=== PATIENT | male | born 1950 | race Caucasian/White ===

== ENCOUNTER → 2021-03-05 | Outpatient (CLI) | payer MEDICARE | LOC: SJCVC 13:41 | PROVIDERS: ATTEND Internal Medicine Cardiovascular Disease | DX: R94.31 Abnormal electrocardiogram [ECG] [EKG] (principal); I48.19 Other persistent atrial fibrillation; I42.0 Dilated cardiomyopathy; I10 Essential (primary) hypertension; E66.9 Obesity, unspecified; E78.5 Hyperlipidemia, unspecified; Z90.49 Acquired absence of other specified parts of digestive tract; Z79.899 Other long term (current) drug therapy; Z87.891 Personal history of nicotine dependence; Z82.49 Family history of ischemic heart disease and other diseases of the circulatory system ==

== ENCOUNTER 2021-05-08 08:29 | Observation (INO) | payer OTHER ==
[~2021-05-08] VITALS: Ht 193 cm; Wt 163.7 kg
[2021-05-08 07:45] VITALS: BP 132/79
[~2021-05-08 08:29] MED LIST: ALLOPURINOL 10100 M3 PO; ENTRESTO 49 MG1 EACH PO; KLOR-CON M2020 MEQ PO; LIPITOR40 MG PO; NORVASC10 MG PO; SERTRALINE HCL100 MG PO; SUPER THERAVIT1 EACH PO; TOPROL XL50 MG PO; XARELTO20 MG PO
[2021-05-08 09:17] LABS: ABSOLUTE NEUTROPHILS 5.4 thou/uL (1.4-8.2); BASOPHILS 0.8 % (0.0-2.0); EOSINOPHILS 1.4 % (0.0-3.0); HEMATOCRIT 43.6 % (42.0-52.0); HEMOGLOBIN 14.6 gm/dL (14.0-18.0); LYMPHOCYTES 17.8 % (24.0-44.0); MCH 32.3 pg (26.0-34.0); MCHC 33.6 g/dL (28.0-37.0); MCV 96.3 fL (80.0-100.0); MONOCYTES 7.1 % (1.0-8.0); PLATELET COUNT 305 thou/uL (150-400); POLYS 72.9 % (36.0-66.0); RBC 4.52 mil/uL (4.50-6.00); RDW 15.1 % (10.5-14.5); WBC 7.5 thou/uL (4.0-11.0)
[2021-05-08 09:32] LABS: APTT 26.3 Seconds (24.5-32.8); CREATININE 1.2 mg/dL (0.7-1.3); POTASSIUM 4.1 mmol/L (3.5-5.1); PROTIME 10.9 Seconds (10.5-12.1)
[2021-05-08 09:38] LABS: ALBUMIN 3.4 g/dL (3.4-5.0); TOTAL BILIRUBIN 0.6 mg/dL (0.2-1.0); TOTAL PROTEIN 7.1 g/dL (6.4-8.2)
--- NOTE | 2021-05-08 09:47 | TEE ---
[address] [address] TRANSESOPHAGEAL ECHOCARDIOGRAM Name: MADALYN GOODEN Room #: REG [facility] Delmi.#: [id number] Admission: 05/08/21 Attend Phys: Constantino White MD, Discharge: Date of : 50 Report #: [id number] THIS REPORT FOR: cc: FAM - Family physician unknown FAM - Family physician unknown Constantino White MD [facility] ~ APPROVED REPORT Study performed: 05/08/2021 07:57:05 EXAM: Comprehensive 2D, Doppler, and color-flow Echocardiogram Patient Location: CVL Status: routine HR: 86 bpm Rhythm: Atrial Fibrillation Indications Atrial Fibrillation Procedure After obtaining informed consent, patient underwent transesophageal echo in the IR. Type of Sedation : General Anesthesia Sedation start time: 09 Case end Time: 913 Transesophageal probe was inserted and advanced into esophagus without difficulty by Constantino White MD. The DM was performed without complications. Throughout the procedure, the blood pressure, pulse oximetry, cardiac rhythm, and rate were monitored. The patient tolerated the procedure without adverse effects. Recovery from conscious sedation was uneventful and vital signs were stable. Left Ventricle The left ventricle is normal size. Mild concentric left ventricular hypertrophy. Left ventricular systolic function is severely decreased. LVEF is 25-30%. Right Ventricle The right ventricle is normal size. [address] [address] TRANSESOPHAGEAL ECHOCARDIOGRAM Name: MADALYN GOODEN Room #: REG [facility]..#: [id number] Admission: 05/08/21 Attend Phys: Constantino White, Discharge: Date of : 50 Report #: [id number] Atria Left atrium is moderately dilated. Right atrium is moderately dilated. Aortic Valve Trace aortic regurgitation. Tricuspid Valve Trace tricuspid regurgitation. <Conclusion> Consent previously obtained Anesthesia performed by the anesthesiologist Esophageal probe was advanced without difficulty Left atrial appendage, moderate size, no obvious mass or clot detected. Left ventricle size in the upper limits of normal with normal wall thickness Global hypokinesis ejection fraction 25-30% Moderate biatrial enlargement Trileaflet aortic valve, minimal calcification, no stenosis Normal mitral valve structure and function, trace mitral valve insufficiency Trace tricuspid valve insufficiency No evidence of ASD/VSD by color study Patient had a previous DM therefore no study performed. No pericardial effusion <ELECTRONICALLY SIGNED> By: Constantino White MD, FACC 05/08/21945 5 5 Constantino White MD, FACC /INF
[2021-05-08 14:45] VITALS: BP 130/84
--- NOTE | 2021-05-08 18:17 | NUR ---
PT ARRIVED APPROX [address] [employer]. R GROIN DRESSING WITH DRAINAGE. NO HEMATOMA. DAUGHTER AT BEDSIDE. POST CATH BEDREST. PT COMPLIANT. VSS C/O BACK PAIN MANAGED WITH PO PAIN MEDS. O2 SATS WNL RA. PLAN FOR POSSIBLE DC HOME IN AM. AMIO GTT CONTINUES PER ORDERS. DENIES FURTHER NEEDS. CONTINUING POC. WILL PASS REPORT TO MANA LOVETT.
[2021-05-08 20:17] VITALS: BP 128/75
[2021-05-08 23:45] VITALS: BP 126/69
[2021-05-09 05:06] VITALS: BP 125/67
[2021-05-09] MEDS ORDERED: PACERONE200 MG PO (07:38)
[2021-05-09 09:18] VITALS: BP 132/77
[2021-05-09 09:40] VITALS: BP 132/77
--- NOTE | 2021-05-09 10:55 | NUR ---
ASSUMED PATIENT CARE AT 0700. A/O X4. ON AMIO GTT. NSR ON MONITOR. DENIES CHEST PAIN. NO SOB. RIGHT GRONE NO MORE BLEEDING NOTED. DC TO HOME NOW.
--- NOTE | 2021-05-21 08:44 | P ---
[facility] [place] [address] PROCEDURE REPORT Name: MADALYN GOODEN Room #: 218-P [facility] M.R.#: [id number] Admission: 05/08/21 Attend Phys: Constantino White MD, Discharge: 05/09/21 Date of : 50 Report #: [id number] THIS REPORT FOR: cc: FAM - Family physician unknown FAM - Family physician unknown Stuart Connors MD ~ PREOPERATIVE DIAGNOSIS: Atrial fibrillation. POSTOPERATIVE DIAGNOSIS: Atrial fibrillation. PROCEDURE PERFORMED: 1. Atrial fibrillation ablation -- CPT code 51766. 2. 3D mapping, CPT code 05331. 3. Intracardiac echo, CPT code 48150. 4. Focal ablation -- CPT code 38549. HISTORY: The patient is a 71-year-old with recurrent AFib, here for ablation. ANESTHESIA: The patient underwent general anesthesia with no anesthesia related complications. DESCRIPTION OF PROCEDURE: The patient underwent informed consent. He was brought to the EP laboratory in a fasting and sedated state. He was prepped and draped in standard fashion, obtained access to the right femoral vein x 3, placing an 8, 9 and 7-Kiswahili short sheath. Next, I placed a decapolar catheter into the coronary sinus and ICE catheter into the right atrium. Intracardiac ultrasound images were taken. The patient had two left and two right pulmonary veins. This was merged with the CT scan. The patient was then systemically heparinized and a transseptal was attempted using an SL1 sheath and a Steward needle. I was able to cross the wire into the left atrium, but could not advance the SL1 sheath. Therefore, I tried to dilate up with the cryosheath which would not cross. I then went back up with the SL1 sheath and this now could enter the left atrium and therefore, I used a PowerFlex Pro 6 mm x 4 cm balloon to dilate the interatrial septum. I performed 3 dilatations each at 10 atmospheres and each of 10 seconds duration. Then I was able to remove the SL1 sheath and advanced the cryosheath into the left atrium. Next, I started by attempting to isolate the left superior pulmonary vein, which was unsuccessful. I performed a total of four freezes of 4 minutes duration, which did not result in isolation. Therefore, at the end of the case, I went up with the SmartTouch ThermoCool and isolated this using radiofrequency ablation. I then turned my attention to the left inferior pulmonary vein. This vein underwent three freezes each of 3 minutes duration and then was isolated. The right superior pulmonary vein underwent a 3-minute freeze followed by two 4-minute freezes and it was unclear if this was isolated. I then turned my attention in the right inferior pulmonary vein. This underwent three 4-minute freezes and on a final [facility] [address] [place] [address] PROCEDURE REPORT Name: MADALYN GOODEN Room #: 218-P [facility] Cammie Guzman#: [id number] Admission: 05/08/21 Attend Phys: Constantino White MD, Discharge: 05/09/21 Date of : 50 Report #: [id number] freeze it isolated at 28 seconds. The patient was eventually cardioverted and it showed that all veins were isolated except for the left superior pulmonary vein, which required radiofrequency ablation. A posterior wall isolation. Next, using the cryoablation balloon, I performed 5 freezes along the posterior wall, which resulted in posterior wall isolation. Post-ablation, the patient was back in sinus rhythm after cardioversion. There were no other arrhythmias noted. The patient then received systemic protamine and once ACT was within acceptable range, catheters and sheaths were pulled and hemostasis obtained. Intracardiac ultrasound showed no evidence of pericardial effusion. The patient awoke neurologically and hemodynamically intact. No complications. No significant bleeding. CONCLUSION: 1. Successful AFib ablation with isolation of the pulmonary veins. 2. Successful posterior wall isolation using cryoablation balloon. <ELECTRONICALLY SIGNED> By: tSuart Connors MD 05/21/21 0844 [id number] Stuart Cononrs MD /nt
== END 2021-05-09 11:38 | disposition home or self-care (01) ==
LOC: CATH 08:29 → 2N 14:42
PROVIDERS: ADMIT Internal Medicine Cardiovascular Disease; ATTEND Internal Medicine
DX: I48.91 Unspecified atrial fibrillation (principal); I10 Essential (primary) hypertension; Z20.822 Contact with and (suspected) exposure to COVID-19; E66.9 Obesity, unspecified; Z68.41 Body mass index [BMI] 40.0-44.9, adult; Z79.899 Other long term (current) drug therapy; Z88.8 Allergy status to other drugs, medicaments and biological substances
CPT/HCPCS: 62110; 62900; 65020